=== PATIENT | male | born 1995 | race Caucasian/White ===

== ENCOUNTER 2017-12-18 18:37 | Emergency (ER) | payer OTHER ==
[2017-12-18 18:57] VITALS: BP 128/62
[2017-12-18] MEDS ORDERED: Benzoin Compound STICK ONE (19:07)
--- NOTE | 2017-12-18 19:14 | UC ---
Laceration HPI - HPI Summary HPI Summary: left thumb pad cut on a can 90 minutes [employer]--no bleeding - History Of Current Complaint Chief Complaint: UCUpperExtremity Stated Complaint: FINGER LAC WC Time Seen by Provider: 12/18/17 19:04 Hx Obtained From: Patient Laceration Location: Finger - pad of left thumb Mechanism Of Injury: Sharp Trauma Onset/Duration: Sudden Onset Pain Intensity: 3 Pain Scale Used: 0-10 Numeric Aggravating Factors: Nothing Related History: Occupational Injury - Allergies/Home Medications Allergies/Adverse Reactions: Allergies Allergy/AdvReac Type Severity Reaction Status Date / Time No Known Allergies Allergy Verified 12/18/17 18:57 Home Medications: Home Medications NK [No Home Medications Reported] 12/18/17 [History Confirmed 12/18/17] PMH/Surg Hx/FS Hx/Imm Hx Previously Healthy: Yes - Surgical History Surgical History: None - Family History Known Family History: Positive: None - Social History Occupation: Employed Full-time Lives: With Family Alcohol Use: Daily Substance Use Type: Marijuana Substance Use Comment - Amount & Last Used: 5 times a week Smoking Status (MU): Former Smoker When Did the Patient Quit Smoking/Using Tobacco: 2 weeks ago - Immunization History Most Recent Tetanus Shot: up to date ---2014 Review of Systems Constitutional: Negative Skin: Negative, Other - 15 mm laceration to left thumb pad no bleeding---well approximated Eyes: Negative ENT: Negative Respiratory: Negative Cardiovascular: Negative Gastrointestinal: Negative Genitourinary: Negative Motor: Negative Neurovascular: Negative Musculoskeletal: Negative Neurological: Negative Psychological: Negative Is Patient Immunocompromised?: No All Other Systems Reviewed And Are Negative: Yes Physical Exam Triage Information Reviewed: Yes Appearance: Well-Appearing, No Pain Distress, Well-Nourished Vital Signs: Initial Vital Signs Temp 98.3 F 12/18/17 18:52 Pulse 57 12/18/17 18:52 Resp 16 12/18/17 18:52 BP 128/62 12/18/17 18:52 Pulse Ox 100 12/18/17 18:52 Vital Signs Reviewed: Yes Eye Exam: Normal Eyes: Positive: Conjunctiva Clear ENT Exam: Normal ENT: Positive: Normal ENT inspection, Hearing grossly normal. Negative: Trismus , Muffled voice, Hoarse voice Dental Exam: Normal Neck exam: Normal Neck: Positive: Supple, Nontender Respiratory Exam: Normal Respiratory: Positive: Chest non-tender, No respiratory distress, No accessory muscle use Cardiovascular Exam: Normal Cardiovascular: Positive: RRR, Pulses Normal, Brisk Capillary Refill Musculoskeletal Exam: Normal Musculoskeletal: Positive: Strength Intact, ROM Intact, No Edema Neurological Exam: Normal Neurological: Positive: Alert, Muscle Tone Normal Psychological Exam: Normal Skin Exam: Other Skin: Positive: Other - laceration pad of left thumb Laceration Repair - Laceration Repair 1 Description: Linear Laceration Size After Repair: Length (cm) - 1.5, Width (mm) - 1, Depth (mm) - 3 Modified For Repair: No Cleansing Completed Via Routine Prep: Yes Irrigation With Pressure Irrigation Device: Yes Closure Material: Skin Adhesive, SteriStrips Laceration Course/Dx - Course/Dx Course Of Treatment: skin glue instructions, follow with pcp prn - Differential Dx - Laceration/Wound Provider Diagnoses: 1.5 cm laceration palmar surface of left thum glue repair Discharge - Sign-Out/Discharge Documenting (check all that apply): Patient Departure - Discharge Plan Condition: Stable Disposition: HOME Patient Education Materials: Skin Adhesive Care (ED) Forms: *School Release Referrals: [facility] [place] [facility] [Outside] - If Needed - Billing Disposition and Condition Condition: STABLE Disposition: Home
== END 2017-12-18 19:36 | disposition home or self-care (01) ==
LOC: UCEAST 18:37
DX: S61.012A Laceration without foreign body of left thumb without damage to nail, initial encounter (principal); W26.8XXA Contact with other sharp object(s), not elsewhere classified, initial encounter; Y93.9 Activity, unspecified; Y92.9 Unspecified place or not applicable; Y99.0 Civilian activity done for income or pay; Z87.891 Personal history of nicotine dependence
CPT/HCPCS: 12001; 99201; G0463